=== PATIENT | female | born 1985 | race Caucasian/White ===

== ENCOUNTER 2022-01-12 04:02 | Emergency (ER) | payer OTHER, SELFPAY ==
[2022-01-12 04:06] VITALS: BP 155/105; PULSE 96; RESP 16; TEMP 36.8; O2SAT 98; BMI 37.3
--- NOTE | 2022-01-12 04:07 | ED_ITS ---
HPI - Wound/Laceration General: Chief Complaint: Wound/Laceration Stated Complaint: open wound Time Seen by Provider: 01/12/22 04:03 History of Present Illness: 36-year-old lady with history of skin biopsy on elbow and right thigh presenting due to postoperative concern. She had stitches removed at her postoperative visit and had been doing well however overnight noticed that the patient bleeding is little bit. No signs of systemic illness. Bleeding controlled with pressure without evidence of arterial bleeding. No history of bleeding diatheses. No other specific changes in health, exacerbating, or alleviating factors identified. Onset (ago): hour(s) Extremity Location: Left: elbow and Right: thigh Place: home Patient tetanus UTD: Yes Context: other Associated symptoms: Reports no associated symptoms Review of Systems General: Reports: 10 or more systems reviewed and unremarkable except in HPI and below PFSH ED PFSH: Medical History (Updated 01/21/22 @ 22:24 by Robert Aponte MD) Skin lesion Surgical History (Updated 01/21/22 @ 22:24 by Robert Aponte MD) History of skin surgery Physical Exam Const: COMMON NORMALS: alert GENERAL APPEARANCE: cooperative and well developed HENMT: COMMON NORMALS: normocephalic and atraumatic HEAD & SCALP: normocephalic and atraumatic Eye: COMMON NORMALS: conjunctivae normal CONJUNCTIVA: Yes conjunctivae normal SCLERA: sclerae normal Neck/C-Spine: COMMON NORMALS: supple GENERAL: Yes trachea midline Resp: COMMON NORMALS: clear to auscultation bilaterally EFFORT & INSPECTION: Yes able to speak in complete sentences AUSCULTATION: clear to auscultation bilaterally Cardio: COMMON NORMALS: regular rate and regular rhythm RATE: regular rate RHYTHM: regular rhythm GI: COMMON NORMALS: Soft to palpation PALPATION: Yes Soft to palpation and No Tenderness to palpation present (GI) Extremity: NARRATIVE EXTREMITY EXAM: Left elbow skin surgical site mildly open however no active bleeding and wound is small most consistent with punch biopsy. Right leg approximately 3 cm dehisced wound without active bleeding. GENERAL: Yes normal exam except as noted and No edema Neuro: COMMON NORMALS: moves all extremities SENSORIUM/ORIENTATION: Yes alert and No Orientation impaired Psych: COMMON NORMALS: mental status grossly normal and Normal thought process present THOUGHT PROCESS: Normal thought process present Course Vital Signs: Vital signs: Vital Signs Temperature 98.2 F 01/12/22 04:06 Pulse Rate 97 01/12/22 04:11 Respiratory Rate 16 01/12/22 04:11 Blood Pressure 127/88 01/12/22 04:11 Pulse Oximetry 97 01/12/22 04:11 Oxygen Delivery Me thod 01/12/22 04:11 MDM - Wound/Laceration Medical Decision Making 36-year-old lady presenting with reopening of wound after suture removal from skin lesion removal. Lesion found to be benign incidentally. Bleeding controlled upon initial evaluation. Given depth of lesion and reported history I will reinforce wound with Steri-Strips which I performed after cleaning however I do not need that resuturing and is appropriate given risk of infection and abscess formation. I explained healing process to the patient and wound care. The results of ED evaluation were discussed with the patient including prescriptions and/or symptomatic cares (if applicable) including appropriate and responsible use, followup plan, and return precautions. The patient verbalized understanding and felt safe for discharge. Medical Records I reviewed the patient's medical records. Lab Data I reviewed the patient's lab results. Discharge Plan Discharge Patient Disposition: Home Clinical Impression: Dehiscence of wound Condition: Stable Prescriptions: New cephalexin 500 mg capsule 500 mg PO BID 10 Days Qty: 20 0RF Discharge Orders: Discharge ED (Routine); Ordered 01/12/22 Ordered By: Robert Aponte Discharge Diet: Usual diet Discharge Activity: Limit activity as instructed Patient Instructions: Wound Dehiscence (ED) Activity Restrictions/Additional Instructions: Thank you for visiting the emergency department. You were seen and evaluated for wound dehiscence. This was reinforced with Steri-Strips. I will prescribe antibiotics. Please follow-up with your operating physician. Return to an emergency department for any signs of infection or anything else that you are concerned about a feel needs emergency department evaluation. Coding Level of Care Code ED [employer] Att[employer] for Joaquim Bran
[2022-01-12 04:11] VITALS: BP 127/88; PULSE 97; RESP 16; O2SAT 97
== END 2022-01-12 04:38 | disposition home or self-care (01) ==
PROVIDERS: Emergency Provider Emergency Medicine
DX: T81.31XA Disruption of external operation (surgical) wound, not elsewhere classified, initial encounter (principal)
CPT/HCPCS: 99282

== ENCOUNTER → 2022-06-27 15:00 | Outpatient (BNVA) | payer OTHER, SELFPAY | PROVIDERS: Visit Provider Nurse Practitioner Women's Health | DX: Z12.4 Encounter for screening for malignant neoplasm of cervix (principal) | CPT/HCPCS: 87624 ==

== ENCOUNTER 2022-07-13 14:13 | Outpatient (CLI) | payer OTHER, SELFPAY ==
--- NOTE | 2022-07-13 14:26 | MM_ITS ---
WS: [id number] BILATERAL 3D TOMOSYNTHESIS DIGITAL DIAGNOSTIC MAMMOGRAPHY WITH CAD CLINICAL INFORMATION: RT BR LUMP HISTORY: Palpable lump RIGHT breast TECHNIQUE: Bilateral CC, MLO, and ML views. FINDINGS: The breasts are composed of heterogeneous fibroglandular density, which can limit the detection of sm all underlying mass lesions. Palpable marker upper outer RIGHT breast. Dense underlying parenchymal t issue. Ultrasound described below. A few incidental punctate calcifications bilaterally. No other christy picious findings. ULTRASOUND BREAST RIGHT TECHNIQUE: Ultrasound right breast focused area of concern. CLINICAL INFORMATION: RT BR LUMP FINDINGS: Ultrasound RIGHT breast 2:00 position 6 cm from the nipple in the area of concern. At the 10:00 posit ion is a benign appearing cyst measuring 9.4 x 5.7 and 11.0 mm. Tiny amount of internal debris. Dense underlying parenchymal tissue. No suspicious cystic or solid lesions. No asymmetric for biopsy. MM/[place] [id number] IMPRESSION: BI-RADS: 2-Benign FOLLOW UP: Age 39 Recommend annual screening mammography age 39.
== END 2022-07-13 14:14 | disposition home or self-care (01) ==
PROVIDERS: PCP Nurse Practitioner Family; Visit Provider Nurse Practitioner Women's Health
DX: N63.10 Unspecified lump in the right breast, unspecified quadrant (principal)
CPT/HCPCS: 76642; 77062; G0279

== ENCOUNTER → 2024-09-17 11:16 | Outpatient (BNVA) | payer OTHER, SELFPAY | PROVIDERS: PCP Nurse Practitioner Family; Visit Provider Nurse Practitioner Women's Health | DX: Z01.419 Encounter for gynecological examination (general) (routine) without abnormal findings (principal); Z12.31 Encounter for screening mammogram for malignant neoplasm of breast | CPT/HCPCS: 87624 ==

== ENCOUNTER 2024-09-23 11:39 | Outpatient (CLI) | payer OTHER, SELFPAY ==
--- NOTE | 2024-09-23 11:40 | MM_ITS ---
WS: [id number] BILATERAL 3D TOMOSYNTHESIS DIGITAL SCREENING MAMMOGRAPHY WITH CAD CLINICAL INFORMATION: Z12.31 - Encounter for screening mammogram for malignant ... HISTORY: Screening mammogram. No current complaints. COMPARISON: 2022 TECHNIQUE: Bilateral CC and MLO views. FINDINGS: The breasts are composed of heterogeneous fibroglandular density tissue, which can limit the detection of small underlying mass lesions. No suspicious mass, asymmetry, calcifications, or architectural distortion. No evidence of malignancy. Stable dense breast tissue upper outer breast bilaterally. A few incidental punctate calcifications. Partially obscured nodules outer RIGHT breast previously demonstrated by ultrasound to represent cysts. Similar to previous MM/MM [facility] tomosynthesis [id number] IMPRESSION: DENSITY: The breasts are heterogeneously dense, which may obscure small masses. BI-RADS: 2 - Benign FOLLOW UP: 1 Year Follow-up Recommend return to annual screening mammography.
== END 2024-09-23 11:40 | disposition home or self-care (01) ==
LOC: MOBLMAM 11:40
PROVIDERS: PCP Nurse Practitioner Women's Health; Visit Provider Nurse Practitioner Women's Health
DX: Z12.31 Encounter for screening mammogram for malignant neoplasm of breast (principal); R92.333 Mammographic heterogeneous density, bilateral breasts; N64.89 Other specified disorders of breast; R92.1 Mammographic calcification found on diagnostic imaging of breast; N60.11 Diffuse cystic mastopathy of right breast
CPT/HCPCS: 77063; 77067

== ENCOUNTER → 2024-11-12 12:39 | Outpatient (BNVA) | payer OTHER, SELFPAY | PROVIDERS: PCP Nurse Practitioner Women's Health; Visit Provider Nurse Practitioner Women's Health | DX: R87.615 Unsatisfactory cytologic smear of cervix (principal) | CPT/HCPCS: 88175 ==